=== PATIENT | female | born 1995 | race Two or more races ===

== ENCOUNTER → 2020-01-10 | Emergency (ER) | payer MEDICAID, OTHER ==
[~2020-01-10] VITALS: Ht 152.4 cm; Wt 59.0 kg
[~2020-01-10] MED LIST: cefTRIAXone SOD 1,000 MG VL IM ONE
[2020-01-10 19:02] LABS: Urine Bacteria FEW /hpf (None Seen); Urine Blood Negative /uL (Negative); Urine Mucus MODERATE (None Seen); Urine Specific Gravity 1.029 (1.001-1.035); Urine WBC 18 /hpf (0 - 5)
[2020-01-10 23:50] VITALS: BP 117/80
== END | disposition home or self-care (01) ==
LOC: ER 17:37
DX: O23.41 Unspecified infection of urinary tract in pregnancy, first trimester (principal); Z3A.01 Less than 8 weeks gestation of pregnancy
CPT/HCPCS: 36415; 76801; 81001; 81025; 84702; 96372; 99284; J0696

== ENCOUNTER → 2020-01-24 | Emergency (ER) | payer MEDICAID ==
[~2020-01-24] VITALS: Ht 152.4 cm; Wt 55.3 kg
[~2020-01-24] MED LIST changes: +ONDANSETRON HCL 4 MG/2 ML VIAL IV ONE; +POTASSIUM CHL 20 Meq TABLET PO ONE; +POTASSIUM EFFERVESENT TAB 25 MEQ PO ONE; +SODIUM CHLORIDE 0.9% 1,000 ML IV ONE; -cefTRIAXone SOD 1,000 MG VL IM ONE
[2020-01-24 13:06] LABS: Basophils # (auto) 0 10 ^3/uL (0-0.2); Basophils % (auto) 0.3 % (0.0-2.0); Eosinophils # (auto) 0 10 ^3/uL (0-0.8); Eosinophils % (auto) 0.1 % (0.0-7.0); Hemoglobin 13.7 g/dL (12.2-16.2); Lymphocytes % (auto) 8.2 % (10.0-50.0); Mean Corpuscular Hemoglobin 31.6 pg (28.0-32.0); Mean Corpuscular Hgb Conc. 34.3 g/dL (32.0-36.0); Mean Corpuscular Volume 91.9 fL (80.0-100.0); Monocytes # (auto) 0.6 10 ^3/uL (0-1.3); Monocytes % (auto) 4.5 % (0.0-12.0); Neutrophils # (auto) 10.7 10 ^3/uL (1.6-8.6); Neutrophils % (auto) 86.9 % (37.0-80.0); Platelet Count (auto) 329 10^3/uL (140-450); Red Blood Cells 4.35 10^6/uL (4.0-5.20); Red Cell Distribution Width 12.9 % (11.8-14.3); White Blood Cell 12.4 10^3/uL (4.4-10.8)
[2020-01-24 13:16] LABS: Albumin 4.3 g/dL (3.4-5.0); Calcium 9.3 mg/dL (8.5-10.1); Potassium 3.2 mmol/L (3.5-5.1)
[2020-01-24 13:20] LABS: BUN/Creatinine Ratio 17.7; Bilirubin, Total 0.5 mg/dL (0.2-1.0); Total Protein 9.2 g/dL (6.4-8.2)
[2020-01-24 16:00] VITALS: BP 106/63
== END | disposition home or self-care (01) ==
LOC: ER 11:37
DX: O21.0 Mild hyperemesis gravidarum (principal); Z3A.08 8 weeks gestation of pregnancy
CPT/HCPCS: 36415; 80053; 84702; 85025; 96361; 96374; 99283; J2405; J7030

== ENCOUNTER 2020-06-28 13:15 | Observation (INO) | payer MEDICAID ==
[~2020-06-28] VITALS: Ht 152.4 cm; Wt 72.6 kg
[2020-06-28] MEDS: TERBUTALINE SULFATE 1 MG/ML 1ML VIAL SC SCH ×2 (14:26→15:06)
[2020-06-28] MEDS ORDERED: BETAMETHASONE ACET (6MG/ML) 5ML VIAL ONE (14:58)
[2020-06-29] MEDS ORDERED: BETAMETHASONE ACET (6MG/ML) 5ML VIAL IM SCH (14:20)
[2020-06-29] MEDS ORDERED: PREN-96 PO (15:08)
[2020-06-29] MEDS ORDERED: NIF10C PO (15:47)
== END 2020-06-28 16:20 | disposition home or self-care (01) ==
LOC: LDRP 13:15 → UNDODISOB 16:20
PROVIDERS: ADMIT Obstetrics & Gynecology; ATTEND Obstetrics & Gynecology
DX: O62.9 Abnormality of forces of labor, unspecified (principal); O26.873 Cervical shortening, third trimester; O24.410 Gestational diabetes mellitus in pregnancy, diet controlled; O26.893 Other specified pregnancy related conditions, third trimester; N89.8 Other specified noninflammatory disorders of vagina; Z3A.30 30 weeks gestation of pregnancy
CPT/HCPCS: 59025; 81002; 82948; 82962; 96372; G0378; J0702; J3105

== ENCOUNTER 2020-06-29 14:53 | Observation (INO) | payer MEDICAID ==
[2020-06-29] MEDS ORDERED: PREN-96 PO (15:08)
[2020-06-29] MEDS ORDERED: BETAMETHASONE ACET (6MG/ML) 5ML VIAL IM ONE (15:15)
[2020-06-29] MEDS ORDERED: NIF10C PO (15:47)
== END 2020-06-29 15:45 | disposition home or self-care (01) ==
LOC: LDRP 14:53
PROVIDERS: ADMIT Obstetrics & Gynecology; ATTEND Obstetrics & Gynecology
DX: O60.03 Preterm labor without delivery, third trimester (principal); Z3A.31 31 weeks gestation of pregnancy
CPT/HCPCS: 59025; 81002; 96372; G0378

== ENCOUNTER 2020-07-06 10:03 | Observation (INO) | payer MEDICAID ==
[~2020-07-06 10:03] MED LIST changes: +NIF10C PO; -ONDANSETRON HCL 4 MG/2 ML VIAL IV ONE; -POTASSIUM CHL 20 Meq TABLET PO ONE; -POTASSIUM EFFERVESENT TAB 25 MEQ PO ONE; +PREN-96 PO; -SODIUM CHLORIDE 0.9% 1,000 ML IV ONE
[2020-07-06 10:49] LABS: Urine Bacteria FEW /hpf (None Seen); Urine Blood TRACE /uL (Negative); Urine Mucus FEW (None Seen); Urine Specific Gravity 1.019 (1.001-1.035); Urine WBC 190 /hpf (0 - 5)
[2020-07-06] MEDS ORDERED: TERBUTALINE SULFATE 1 MG/ML 1ML VIAL SC SCH (12:45)
== END 2020-07-06 14:00 | disposition home or self-care (01) ==
LOC: LDRP 10:03
PROVIDERS: ADMIT Specialist; ATTEND Specialist
DX: O24.419 Gestational diabetes mellitus in pregnancy, unspecified control (principal); O60.03 Preterm labor without delivery, third trimester; Z3A.32 32 weeks gestation of pregnancy
CPT/HCPCS: 59025; 81001; 81002; 82948; 82962; 96372; G0378; J3105

== ENCOUNTER 2020-07-13 09:02 | Observation (INO) | payer MEDICAID ==
[~2020-07-13] VITALS: Ht 152.4 cm; Wt 75.7 kg
[2020-07-13] MEDS ORDERED: LACTATED RINGER'S 1,000 ML IV ONE (09:30)
[2020-07-13] MEDS ORDERED: TERBUTALINE SULFATE 1 MG/ML 1ML VIAL SC SCH (10:15)
== END 2020-07-13 12:20 | disposition home or self-care (01) ==
LOC: LDRP 09:02
PROVIDERS: ADMIT Specialist; ATTEND Specialist
DX: O26.873 Cervical shortening, third trimester (principal); O62.9 Abnormality of forces of labor, unspecified; O24.419 Gestational diabetes mellitus in pregnancy, unspecified control; Z3A.33 33 weeks gestation of pregnancy
CPT/HCPCS: 59025; 76815; 76817; 81002; 82948; 82962; 96360; 96361; 96372; G0378; J3105

== ENCOUNTER 2020-07-20 11:05 | Observation (INO) | payer MEDICAID ==
[2020-07-20] MEDS ORDERED: METF-370 PO (11:22)
== END 2020-07-20 12:00 | disposition home or self-care (01) ==
LOC: LDRP 11:05
PROVIDERS: ADMIT Obstetrics & Gynecology; ATTEND Obstetrics & Gynecology
DX: O24.419 Gestational diabetes mellitus in pregnancy, unspecified control (principal); Z3A.34 34 weeks gestation of pregnancy
CPT/HCPCS: 59025; 81002; 82962; G0378

== ENCOUNTER 2020-07-24 10:20 | Observation (INO) | payer MEDICAID ==
[~2020-07-24 10:20] MED LIST changes: +METF-370 PO
== END 2020-07-24 11:20 | disposition home or self-care (01) ==
LOC: LDRP 10:20
PROVIDERS: ADMIT Obstetrics & Gynecology; ATTEND Obstetrics & Gynecology
DX: O24.415 Gestational diabetes mellitus in pregnancy, controlled by oral hypoglycemic drugs (principal); O60.03 Preterm labor without delivery, third trimester; O26.893 Other specified pregnancy related conditions, third trimester; N89.8 Other specified noninflammatory disorders of vagina; R11.0 Nausea; Z3A.34 34 weeks gestation of pregnancy; Z79.899 Other long term (current) drug therapy
CPT/HCPCS: 59025; 76818; 81002; 82962; G0378

== ENCOUNTER 2020-07-31 09:10 | Observation (INO) | payer MEDICAID | END 2020-07-31 10:30 | disposition home or self-care (01) | LOC: LDRP 09:10 | PROVIDERS: ADMIT Specialist; ATTEND Specialist | DX: O24.415 Gestational diabetes mellitus in pregnancy, controlled by oral hypoglycemic drugs (principal); Z3A.35 35 weeks gestation of pregnancy; Z79.899 Other long term (current) drug therapy | CPT/HCPCS: 59025; 76818; 81002; 82948; 82962; G0378 ==

== ENCOUNTER 2020-08-07 10:20 | Observation (INO) | payer MEDICAID | END 2020-08-07 12:05 | disposition home or self-care (01) | LOC: LDRP 10:20 | PROVIDERS: ADMIT Obstetrics & Gynecology; ATTEND Obstetrics & Gynecology | DX: O24.415 Gestational diabetes mellitus in pregnancy, controlled by oral hypoglycemic drugs (principal); O60.03 Preterm labor without delivery, third trimester; O62.9 Abnormality of forces of labor, unspecified; O26.893 Other specified pregnancy related conditions, third trimester; R12 Heartburn; Z3A.36 36 weeks gestation of pregnancy; Z79.84 Long term (current) use of oral hypoglycemic drugs | CPT/HCPCS: 59025; 76818; 81002; 82948; 82962; G0378 ==

== ENCOUNTER 2020-08-10 11:20 | Observation (INO) | payer MEDICAID | END 2020-08-10 13:12 | disposition home or self-care (01) | LOC: LDRP 11:20 | PROVIDERS: ADMIT Obstetrics & Gynecology; ATTEND Obstetrics & Gynecology | DX: O24.419 Gestational diabetes mellitus in pregnancy, unspecified control (principal); O60.03 Preterm labor without delivery, third trimester; Z3A.37 37 weeks gestation of pregnancy | CPT/HCPCS: 59025; 76818; 81002; 82948; 82962; G0378 ==

== ENCOUNTER 2020-08-11 16:09 | Observation (INO) | payer MEDICAID | END 2020-08-11 17:05 | disposition home or self-care (01) | LOC: LDRP 16:09 | PROVIDERS: ADMIT Obstetrics & Gynecology; ATTEND Obstetrics & Gynecology | DX: O24.419 Gestational diabetes mellitus in pregnancy, unspecified control (principal); Z3A.37 37 weeks gestation of pregnancy | CPT/HCPCS: 59025; 81002; 82962; G0378 ==

== ENCOUNTER 2020-08-14 09:04 | Observation (INO) | payer MEDICAID | END 2020-08-14 10:47 | disposition home or self-care (01) | LOC: LDRP 09:04 | PROVIDERS: ADMIT Obstetrics & Gynecology; ATTEND Obstetrics & Gynecology | DX: O24.419 Gestational diabetes mellitus in pregnancy, unspecified control (principal); Z3A.37 37 weeks gestation of pregnancy | CPT/HCPCS: 59025; 76818; 81002; 82948; 82962; G0378 ==

== ENCOUNTER 2020-08-17 11:50 | Observation (INO) | payer MEDICAID ==
[~2020-08-17 11:50] MED LIST changes: -NIF10C PO
[2020-08-17] MEDS ORDERED: METF-370 PO (13:06)
== END 2020-08-17 12:48 | disposition home or self-care (01) ==
LOC: EDBD 11:50 → LDRP 11:50
PROVIDERS: ADMIT Obstetrics & Gynecology; ATTEND Obstetrics & Gynecology
DX: O24.415 Gestational diabetes mellitus in pregnancy, controlled by oral hypoglycemic drugs (principal); Z3A.38 38 weeks gestation of pregnancy
CPT/HCPCS: 59025; 76818; 81002; 82948; 82962; G0378

== ENCOUNTER 2020-08-21 12:10 | Observation (INO) | payer MEDICAID | END 2020-08-21 14:35 | disposition home or self-care (01) | LOC: LDRP 12:10 | PROVIDERS: ADMIT Obstetrics & Gynecology; ATTEND Obstetrics & Gynecology | DX: O24.419 Gestational diabetes mellitus in pregnancy, unspecified control (principal); Z3A.38 38 weeks gestation of pregnancy | CPT/HCPCS: 59025; 76818; 81002; 82948; 82962; G0378 ==

== ENCOUNTER 2020-08-24 08:18 | Inpatient (IN) | payer MEDICAID ==
[~2020-08-24] VITALS: Ht 30.5 cm; Wt 0.5 kg
[2020-08-24] MEDS ORDERED: BUTORPHANOL TARTRATE 2 MG/1 ML VIAL IV PRN ×2 (08:45)
[2020-08-24] MEDS ORDERED: LACTATED RINGER'S 1,000 ML IV SCH (08:45)
[2020-08-24] MEDS ORDERED: ACCU-CHEK COMFORT CURVE STRIP VI PRN (08:45)
[2020-08-24] MEDS ORDERED: LIDOCAINE 2%HCL (LOCAL ANESTH.) INJ 20ML MDV IJ ONE (08:45)
[2020-08-24] MEDS ORDERED: PROMETHAZINE HCL 25 MG/ML 1ML IV PRN (08:45)
[2020-08-24 09:11] LABS: Basophils # (auto) 0 10 ^3/uL (0-0.2); Basophils % (auto) 0.3 % (0.0-2.0); Eosinophils # (auto) 0 10 ^3/uL (0-0.8); Eosinophils % (auto) 0.5 % (0.0-7.0); Hematocrit 36.1 % (36.0-46.0); Hemoglobin 11.9 g/dL (12.2-16.2); Lymphocytes # (auto) 1.2 10 ^3/uL (0.4-5.4); Lymphocytes % (auto) 14.2 % (10.0-50.0); Mean Corpuscular Hemoglobin 29.5 pg (28.0-32.0); Mean Corpuscular Hgb Conc. 32.9 g/dL (32.0-36.0); Mean Corpuscular Volume 89.6 fL (80.0-100.0); Monocytes # (auto) 0.8 10 ^3/uL (0-1.3); Monocytes % (auto) 9.7 % (0.0-12.0); Neutrophils # (auto) 6.3 10 ^3/uL (1.6-8.6); Neutrophils % (auto) 75.3 % (37.0-80.0); Nucleated Red Blood Cells % 0.1 %; Platelet Count (auto) 237 10^3/uL (140-450); Red Blood Cells 4.03 10^6/uL (4.0-5.20); Red Cell Distribution Width 15.9 % (11.8-14.3); White Blood Cell 8.4 10^3/uL (4.4-10.8)
[2020-08-24 09:22] LABS: Urine Bacteria MOD /hpf (None Seen); Urine Blood Negative /uL (Negative); Urine Mucus FEW (None Seen); Urine Specific Gravity 1.023 (1.001-1.035); Urine WBC 22 /hpf (0 - 5)
[2020-08-24 09:29] LABS: Albumin 2.5 g/dL (3.4-5.0); Calcium 8.6 mg/dL (8.5-10.1); Potassium 3.6 mmol/L (3.5-5.1)
[2020-08-24 09:33] LABS: BUN/Creatinine Ratio 24.4; Bilirubin, Total 0.3 mg/dL (0.2-1.0); INR 0.94 (0.9-1.15); Total Protein 6.7 g/dL (6.4-8.2)
[2020-08-24 09:35] LABS: Amphetamine Screen, Urine NEGATIVE (NEGATIVE); Barbiturate Scree,Urine NEGATIVE (NEGATIVE); Benzodiazephine Screen, Urine NEGATIVE (NEGATIVE); Cannabinoid Screen, Urine NEGATIVE (NEGATIVE); Cocaine Screen, Urine NEGATIVE (NEGATIVE); Opiate Scree,Urine NEGATIVE (NEGATIVE); Phencyclidine Screen, Urine NEGATIVE (NEGATIVE)
[2020-08-24] MEDS ORDERED: LACT. RINGERS/OXYTOCIN 20UNITS 1,000 ML IV SCH (10:15)
[2020-08-24] MEDS ORDERED: METHYLERGONOVINE MALEATE 0.2 MG/ML AMP IM PRN (10:15)
[2020-08-24] MEDS: miSOPROStol 50 MCG per PRE-CUT 1/2 TAB PO PRN ×2 (10:53→15:22)
[2020-08-24] MEDS: D5W/LACTATED RINGERS 1,000 ML IV SCH (16:52)
[2020-08-24] MEDS ORDERED: LACTATED RINGER'S 1,000 ML IV ONE (19:15)
[2020-08-24] MEDS ORDERED: ROPIVACAINE HCL 100 ML EPI SCH ×3 (19:15→20:00)
[2020-08-24] MEDS ORDERED: NALOXONE HCL 0.4 MG/ML VIAL IV ONE (19:15)
[2020-08-24] MEDS ORDERED: fentaNYL 400mCg/200ml W ROPIVA 200 ML EPI SCH (19:15)
[2020-08-24] MEDS ORDERED: ePHEDrine SULFATE 50 MG/ML AMP IV ONE (19:15)
[2020-08-24] MEDS: WITCH HAZEL-GLYCERIN PAD TOP PRN (19:20)
[2020-08-24] MEDS: PHISODERM TOP SOLN 240ML BTL TOP PRN (19:20)
[2020-08-24] MEDS: DERMOPLAST 60ML BOTTLE TOP PRN (19:20)
[2020-08-24] MEDS ORDERED: fentaNYL CITRATE 100 MCG/2 ML VL IV ONE (19:45)
[2020-08-24] MEDS ORDERED: fentaNYL CITRATE 100 MCG/2 ML VL ONE (19:56)
[2020-08-25 04:06] LABS: RPR Non Reactive (Non Reactive)
[2020-08-25] MEDS ORDERED: ROPIVACAINE HCL 100 ML EPI SCH (04:30)
[2020-08-25] MEDS: D5W/LACTATED RINGERS 1,000 ML IV SCH (05:46)
[2020-08-25] MEDS ORDERED: fentaNYL CITRATE 100 MCG/2 ML VL IV ONE (06:00)
[2020-08-25] MEDS ORDERED: fentaNYL CITRATE 100 MCG/2 ML VL ONE (06:03)
[2020-08-25] MEDS ORDERED: LIDOCAINE 2%HCL (LOCAL ANESTH.) INJ 20ML MDV ONE (09:25)
[2020-08-25] MEDS: WITCH HAZEL-GLYCERIN PAD TOP PRN (12:35)
[2020-08-25] MEDS: PHISODERM TOP SOLN 240ML BTL TOP PRN (12:35)
[2020-08-25] MEDS: DERMOPLAST 60ML BOTTLE TOP PRN (12:35)
[2020-08-25] MEDS: IBUPROFEN 600 MG TAB PO PRN ×2 (13:31→21:43)
--- NOTE | 2020-08-25 13:35 | NUR ---
pitocin infusion complete at this time as well as D5LR infusion
--- NOTE | 2020-08-25 13:40 | NUR ---
Ambulation: Patient OOB with standby assistance by RN. Patient ambulated to bathroom with steady gait. Patient able to void 900ml without difficulty. [facility] teaching provided with returned demonstration by patient. Clean gown provided and bed linen changed. Patient ambulated back to bed with steady gait and no distress noted.
[2020-08-25 14:39] VITALS: BP 118/66
[2020-08-25 19:00] VITALS: BP 128/71
[2020-08-25 22:56] VITALS: BP 129/74
[2020-08-26 02:57] VITALS: BP 128/68
[2020-08-26 07:00] VITALS: BP 128/68
[2020-08-26 07:25] VITALS: BP 121/72
[2020-08-26 11:10] VITALS: BP 128/74
--- NOTE | 2020-08-26 13:55 | NUR ---
DR CARLTON NOTIFIED OF STEVEN LEVEL AT 8.0, HIGH RISK ACCORDING TO STEVEN TOOL. PER DR CARLTON TEACHING PROVIDED TO THE MOTHER TO BOTTLE FEED THE EVERY 2 HOURS AND FOLLOW UP WITH [facility]TER SOON POSSIBLE. PER DR CARLTON INFANT IS OK TO GO HOME , ORDERS CARRIED OUT
--- NOTE | 2020-08-26 14:00 | NUR ---
Discharge: Discharge instructions given as ordered. Pt encouraged to follow up with [facility] as instructed. All questions and concerns addressed. Patient verbalized understanding. Medication reconciliation completed and copy given to patient. Patient encouraged to prepare to depart unit.
--- NOTE | 2020-08-26 14:15 | NUR ---
Discharge: Patient taken to vehicle via wheelchair with all personal belongings, accompanied by staff and family member. No distress noted at time of departure, no adverse changes in status since initial assessment.
== END 2020-08-26 14:15 | disposition home or self-care (01) | DRG 560 ==
LOC: LDRP 08:18 → OBSVTOIN 08:18
PROVIDERS: ADMIT Specialist; ATTEND Specialist
PROC: 3E0P7VZ Introduction of Hormone into Female Reproductive, Via Natural or Artificial Opening (ICD-10-PCS; 2020-08-24)
PROC: 10D07Z3 Extraction of Products of Conception, Low Forceps, Via Natural or Artificial Opening (ICD-10-PCS; principal; 2020-08-25)
PROC: 0KQM0ZZ Repair Perineum Muscle, Open Approach (ICD-10-PCS; 2020-08-25)
PROC: 10907ZC Drainage of Amniotic Fluid, Therapeutic from Products of Conception, Via Natural or Artificial Opening (ICD-10-PCS; 2020-08-25)
PROC: 3E0R3BZ Introduction of Anesthetic Agent into Spinal Canal, Percutaneous Approach (ICD-10-PCS; 2020-08-25)
PROC: 00HU33Z Insertion of Infusion Device into Spinal Canal, Percutaneous Approach (ICD-10-PCS; 2020-08-25)
DX: O24.429 Gestational diabetes mellitus in childbirth, unspecified control (principal); O71.4 Obstetric high vaginal laceration alone; Z3A.39 39 weeks gestation of pregnancy; Z37.0 Single live birth; Z20.828 Contact with and (suspected) exposure to other viral communicable diseases
CPT/HCPCS: 36415; 59025; 59409; 62282; 80053; 80307; 81001; 82947; 82948; 82962; 85025; 85610; 85730; 86592; 86850; 86900; 86901; 94760; 96360; 96361; 96366; G0378; J2590